=== PATIENT | female | born 1940 | race Caucasian/White ===

== ENCOUNTER 2018-07-28 08:58 | Inpatient (IN) | payer MEDICARE ==
[~2018-07-28] VITALS: Ht 162.6 cm; Wt 55.8 kg
--- NOTE | ~2018-07-28 | CON ---
[address] [address] CONSULTATION Name: OFE BRAY Room: [address] IN M.R.#: [id number] Admission: 07/28/18 Attend Phys: Hannah Celestin MD Discharge: Date of : 38 Report #: [id number] THIS REPORT FOR: //name// CC: ALEYDA physician/PCP Hannah Celestin DATE OF SERVICE: 07/30/2018 CHIEF COMPLAINT: Painful toenail dystrophy with onychomycosis, requiring debridement. PHYSICAL EXAMINATION: Toenails are thick, severely dystrophic and incurvated with onychogryphosis deformity. No drainage, inflammation, granulation or paronychia. The nails are painful. She has palpable dorsalis pedis and posterior tibial pulses are +1/4 bilaterally. She has a tinea pedis with +2 nonpitting edema to her legs. A dry, xerotic skin. Semi-rigid hammertoe deformities and mild hallux valgus, bilateral. IMPRESSION: Onychomycosis and peripheral vascular disease. PLAN: Toenails are manually debrided. I will follow up with her in my office post-discharge for routine foot care. By: 1840 [id number] Will DPM /dean
[2018-07-28 08:59] VITALS: BP 185/79
[2018-07-28] MEDS ORDERED: COMBIVENT INH (09:19)
[2018-07-28] MEDS ORDERED: ZESTRIL30 MG PO (09:20)
[2018-07-28] MEDS ORDERED: LORAZEPAM 1 MG T1 M1 PO (09:20)
[2018-07-28] MEDS ORDERED: ALTOPREV40 M1 PO (09:21)
[2018-07-28] MEDS ORDERED: SYMBICORT160 MCG/4. INH (09:22)
[2018-07-28 09:42] LABS: ABSOLUTE BASOPHILS 0.1 thou/uL (0.0-0.2); ABSOLUTE EOSINOPHILS 0.2 thou/uL (0.0-0.7); ABSOLUTE LYMPHOCYTES 1.7 thou/uL (0.8-5.3); ABSOLUTE MONOCYTES 0.8 thou/uL (0.0-1.2); BASOPHILS 0.6 %; HEMATOCRIT 51.7 % (37.0-47.0); HEMOGLOBIN 17.1 gm/dL (12.0-15.0); LYMPHOCYTES 17.3 %; MCH 29.8 pg (26.0-34.0); MCV 90.2 fL (80.0-100.0); MONOCYTES 8.7 %; NUCLEATED RBCS 0 /100WBC; PLATELET COUNT* 311 thou/uL (150-400); POLYS 71.4 %; RBC 5.74 mil/uL (4.20-5.00); RDW-CV 12.7 % (10.5-14.5); WBC 9.8 thou/uL (4.0-11.0)
[2018-07-28 09:49] LABS: APTT 31.7 Seconds (25.0-31.3); INR 1.1; PROTIME 11.2 Seconds (9.20-11.50)
[2018-07-28 09:56] LABS: ANION GAP 11 mmol/L (7-16); BUN 9 mg/dL (7-18); CALCIUM 9.2 mg/dL (8.5-10.1); CHLORIDE 101 mmol/L (98-107); CO2 23 mmol/L (21-32); CREATININE 0.8 mg/dL (0.6-1.3); GLUCOSE 109 mg/dL (70-99); SODIUM 135 mmol/L (136-145); TROPONIN-I LEVEL <0.06 ng/mL (<0.06)
[2018-07-28 10:09] LABS: ALBUMIN 3.6 g/dL (3.4-5.0); ALKALINE PHOSPHATASE 109 U/L (46-116); SGOT 28 U/L (15-37); SGPT 30 U/L (30-65); TOTAL BILIRUBIN 0.7 mg/dL (<0.1-1.0); TOTAL PROTEIN 7.9 g/dL (6.4-8.2)
--- NOTE | 2018-07-28 14:41 | EKG ---
[place] [address] ELECTROCARDIOGRAM REPORT Name: OFE BRAY Room: [place] [address] ADM IN .R.#: [id number] Admission: 07/28/18 Attend Phys: Hannah Celestin MD Discharge: Date of : 38 Report #: [id number] THIS REPORT FOR: //name// [facility] Test Date: 2018-07-28 Test Time: 09:33:57 Pat Name: OFE BRAY Department: Room: [facility] Gender: F Mobile Ui Developer: : 1940 Requested By: Riley Johnson Order Number: [id number] MD: Jagjit Taylor Measurements Intervals [place] Rate: 99 P: 74 MT: 141 QRS: 58 QRSD: 93 T: 33 QT: 356 QTc: 457 Interpretive Statements Sinus rhythm Probable left atrial enlargement No previous ECG available for comparison Electronically Signed On 07-28-2018 14:41:14 CDT by Jagjit Taylor [email or web address] <ELECTRONICALLY SIGNED> By: Jagjit Taylor MD, [facility] 07/28/18 1441 0933 2 Jagjit Taylor MD, FACC /EPI
[2018-07-28 15:16] VITALS: BP 146/35
[2018-07-28 15:30] VITALS: BP 181/84
--- NOTE | 2018-07-28 15:39 | 2DMMODE ---
[place] [address] 2 D/M-MODE ECHOCARDIOGRAM Name: OFE BRAY Room: [place] [address] ADM IN [facility]#: [id number] Admission: 07/28/18 Attend Phys: Hannah Celestin, Discharge: Date of : 38 Date of Service: 07/28/18 1539 Report #: [id number] THIS REPORT FOR: //name// APPROVED REPORT Study performed: 07/28/2018 13:50:27 EXAM: Comprehensive 2D, Doppler, and color-flow Echocardiogram Patient Location: In-Patient Room #: er Status: routine BSA: 1.63 HR: 87 bpm BP: 163/71 mmHg Rhythm: NSR Other Information Study Quality: Good Indications Syncope 2D Dimensions IVSd: 8.28 (7-11mm) LVOT Diam: 18.25 (18-24mm) LVDd: 35.02 mm PWd: 8.40 (7-11mm) Ascending Ao: 25.49 (22-36mm) LVDs: 17.78 (25-40mm) Aortic Root: 25.49 mm Volumes Left Atrial Volume (Systole) LA ESV Index: 10.10 mL/m2 Aortic Valve AoV Peak Merrill.: 1.31 m/s AO Peak Gr.: 6.88 mmHg LVOT Max P.14 mmHg AO Mean Gr.: 3.84 mmHg LVOT Mean P.82 mmHg LVOT Max V: 1.02 m/s AO V2 VTI: 21.21 cm LVOT Mean V: 0.61 m/s GIACOMO (VTI): 2.40 cm2 LVOT V1 VTI: 19.46 cm Mitral Valve E/A Ratio: 0.72 MV Decel. Time: 227.91 ms MV E Max Merrill.: 0.63 m/[place] [address] 2 D/M-MODE ECHOCARDIOGRAM Name: OFE BRAY Room: [place] [address] ADM IN .R.#: [id number] Admission: 07/28/18 Attend Phys: Hannah Celestin, Discharge: Date of : 38 Date of Service: 07/28/18 1539 Report #: [id number] MV PHT: 66.09 ms MVA (PHT): 3.33 cm2 TDI E/Lateral E': 7.88 E/Medial E': 9.00 Medial E' Merrill.: 0.07 m/s Lateral E' Merrill.: 0.08 m/s Pulmonary Valve PV Peak Merrill.: 1.04 m/s PV Peak Gr.: 4.32 mmHg Tricuspid Valve RAP Estimate: 5.00 mmHg TR Peak Gr.: 23.90 mmHg RVSP: 28.00 mmHg PA Pressure: 28.00 mmHg Left Ventricle The left ventricle is normal size. There is normal LV segmental wall motion. There is normal left ventricular wall thickness. Left ventricular systolic function is normal. The left ventricular ejection fraction is within the normal range. LVEF is 65%. Grade I - abnormal relaxation pattern. Right Ventricle The right ventricle is normal size. The right ventricular systolic function is normal. Atria The left atrium size is normal. The right atrium size is normal. Aortic Valve Mild aortic valve sclerosis. No aortic regurgitation is present. There is no aortic valvular stenosis. Mitral Valve The mitral valve is normal in structure. There is no mitral valve regurgitation noted. No evidence of mitral valve stenosis. Tricuspid Valve The tricuspid valve is normal in structure. Trace tricuspid regurgitation. No pulmonary hypertension. Pulmonic Valve The pulmonary valve is normal in structure. There is no [place]mon[place] [address] 2 D/M-MODE ECHOCARDIOGRAM Name: OFE BRAY Room: [address] IN [facility]#: [id number] Admission: 07/28/18 Attend Phys: Hannah Celestin, Discharge: Date of : 38 Date of Service: 07/28/18 1539 Report #: [id number] Great Vessels The aortic root is normal in size. IVC is normal in size and collapses >50% with inspiration. Pericardium There is no pericardial effusion. <Conclusion> The left ventricle is normal size. There is normal left ventricular wall thickness. Left ventricular systolic function is normal. The left ventricular ejection fraction is within the normal range. LVEF is 65%. Grade I - abnormal relaxation pattern. The right ventricle is normal size. The left atrium size is normal. Mild aortic valve sclerosis. No aortic regurgitation is present. There is no aortic valvular stenosis. The mitral valve is normal in structure. The tricuspid valve is normal in structure. IVC is normal in size and collapses >50% with inspiration. There is no pericardial effusion. There is normal LV segmental wall motion. <ELECTRONICALLY SIGNED> By: Jagjit Taylor MD, FACC 07/28/18 1539 1539 1539 Jagjit Taylor MD, FACC /INF
[2018-07-28] MEDS ORDERED: LISINOPRIL2.5 MG (17:42)
[2018-07-28] MEDS ORDERED: ATIVAN0.5 MG PO (17:42)
[2018-07-28 20:30] VITALS: BP 108/58
[2018-07-29 04:00] VITALS: BP 141/69
[2018-07-29 07:55] VITALS: BP 145/61
[2018-07-29 16:00] VITALS: BP 140/57
[2018-07-29 16:45] LABS: URINE BILIRUBIN NEGATIVE (Negative); URINE BLOOD TRACE (Negative); URINE CLARITY CLEAR; URINE COLOR YELLOW; URINE GLUCOSE-RANDOM NEGATIVE (Negative); URINE KETONES TRACE (Negative); URINE LEUKOCYTES-REFLEX NEGATIVE (Negative); URINE NITRITE-REFLEX NEGATIVE (Negative); URINE PROTEIN NEGATIVE (Negative); URINE SPECIFIC GRAVITY <= 1.005 (1.005-1.030); URINE UROBILINOGEN 0.2 E.U./dl (0.2-1.0)
[2018-07-29 20:00] VITALS: BP 125/63
[2018-07-29 23:16] VITALS: BP 130/40
[2018-07-30 04:00] VITALS: BP 131/59
[2018-07-30 08:15] VITALS: BP 111/56
--- NOTE | 2018-07-30 11:19 | CON ---
[address] [address] CONSULTATION Name: OFE BRAY Room: [address] IN M.R.#: [id number] Admission: 07/28/18 Attend Phys: Hannah Celestin MD Discharge: Date of : 39 Report #: [id number] THIS REPORT FOR: //name// CC: ALEYDA physician/PCP Hannah Celestin DATE OF SERVICE: 07/29/2018 REASON FOR CONSULTATION: Arranged for patient pulmonary followup at patient request. HISTORY OF PRESENT ILLNESS: The patient is a pleasant 77-year-old woman with history of COPD. She smoked from age of 19 to 39. She used to smoke variable amount up to a pack a day. She has been on Symbicort 160 and Combivent. She is complaining of intermittent chest tightness with improvement with inhalers. She is mainly using Combivent, however, she ran out of her inhalers because of cost. She denies any wheezing, cough or mucus production. The patient is currently not in exacerbation. Denies any change in her symptoms. She is using her Combivent as needed. We are consulted to establish care and the patient to follow up with us; however, the patient not in any distress. PAST MEDICAL HISTORY: Admitted with syncope, history of anxiety, history of COPD per history, hypertension. MEDICATIONS: Reviewed include Combivent, Symbicort, lovastatin, lorazepam, and lisinopril. PAST SURGICAL HISTORY: Tonsillectomy. SOCIAL HISTORY: Quit smoking. Smoked from 19 to 39 as above. FAMILY HISTORY: Noncontributory. Sister at the bedside. REVIEW OF SYSTEMS: Syncope as above. Cardiology workup pending. Otherwise, as per history of present illness. PHYSICAL EXAMINATION: GENERAL: The patient is anxious, not in distress. VITAL SIGNS: Temperature is 36.9. Respiratory rate is 96, blood pressure 145/61. HEAD AND NECK: Neck is supple. Oral mucosa is clear. CHEST: Clear to auscultation. CARDIOVASCULAR: Regular rhythm. ABDOMEN: Soft, nontender. EXTREMITIES: No edema. PSYCHIATRIC: [place] [address] CONSULTATION Name: OFE BRAY Room: [address] IN [facility].#: [id number] Admission: 07/28/18 Attend Phys: Hannah Celestin MD Discharge: Date of : 39 Report #: [id number] LABORATORY AND OTHER DATABASE: Her white blood cell count 9.8. Chest x-ray, which I have reviewed, was clear. ASSESSMENT AND PLAN: Chronic obstructive pulmonary disease, currently stable, not in distress, controlled with current inhaler Symbicort and Combivent. Recommend to continue inhalers. I agree with the recommendation to follow up as outpatient. Currently, her chronic obstructive pulmonary disease is stable and well controlled. I do not have more to add. We will sign off. Recommend for patient to follow up with us as outpatient with pulmonary function test. The patient is in agreement. The patient also directed to use her inhalers with a spacer. Recommend as above to arrange for followup. I do not have more to add. Please call with questions. <ELECTRONICALLY SIGNED> By: Srinath Ruelas MD 07/30/18 1119 1359 [id number] Sandra Ruelas MD /nt
[2018-07-30 12:00] VITALS: BP 135/66
[2018-07-30 16:00] VITALS: BP 130/73
[2018-07-31] VITALS: BP 145/77
[2018-07-31 04:00] VITALS: BP 146/76
[2018-07-31 09:00] VITALS: BP 120/66
[2018-07-31] MEDS ORDERED: PULMICORT0.5 MG/2 M INH (09:12)
[2018-07-31] MEDS ORDERED: LEVALBUTER0.63 MG/3 INH (09:12)
[2018-07-31] MEDS ORDERED: LISINOPRIL10 MG PO (09:12)
[2018-07-31 12:30] VITALS: BP 158/74
[2018-07-31 16:00] VITALS: BP 135/62
[2018-08-01 01:00] VITALS: BP 160/70
[2018-08-01 04:00] VITALS: BP 143/79
[2018-08-01 09:00] VITALS: BP 127/69
[2018-08-01 12:00] VITALS: BP 124/57
[2018-08-01 20:00] VITALS: BP 120/66
[2018-08-02 08:30] VITALS: BP 95/47
[2018-08-02 16:00] VITALS: BP 100/63; BP 90/66
[2018-08-02 20:30] VITALS: BP 119/82
[2018-08-03 04:58] LABS: ABSOLUTE BASOPHILS 0.1 thou/uL (0.0-0.2); ABSOLUTE EOSINOPHILS 0.3 thou/uL (0.0-0.7); ABSOLUTE LYMPHOCYTES 1.8 thou/uL (0.8-5.3); ABSOLUTE MONOCYTES 0.8 thou/uL (0.0-1.2); ABSOLUTE NEUTROPHILS 5.1 thou/uL (1.6-8.1); BASOPHILS 0.7 %; EOSINOPHILS 3.9 %; HEMATOCRIT 44.6 % (37.0-47.0); HEMOGLOBIN 14.7 gm/dL (12.0-15.0); LYMPHOCYTES 22.8 %; MCH 29.4 pg (26.0-34.0); MCHC 32.9 g/dL (28.0-37.0); MCV 89.4 fL (80.0-100.0); MONOCYTES 9.7 %; MPV 8.8 fl. (7.2-11.1); NUCLEATED RBCS 0 /100WBC; PLATELET COUNT* 311 thou/uL (150-400); POLYS 62.9 %; RBC 4.99 mil/uL (4.20-5.00); RDW-CV 13.1 % (10.5-14.5); WBC 8.1 thou/uL (4.0-11.0)
[2018-08-03 05:33] LABS: CALCIUM 9.3 mg/dL (8.5-10.1); CREATININE 0.8 mg/dL (0.6-1.3); POTASSIUM 3.7 mmol/L (3.5-5.1)
[2018-08-03 08:00] VITALS: BP 143/93
[2018-08-03 09:31] VITALS: BP 143/93
[2018-08-03] MEDS ORDERED: UNICOMPLEX M TA1 TA1 PO (09:38)
[2018-08-03] MEDS ORDERED: VITAMIN B-1100 M1 PO (09:39)
[2018-08-03] MEDS ORDERED: FOLIC ACID1 MG PO (09:39)
[2018-08-03] MEDS ORDERED: XANAX 0.25 MG0.25 MG PO (09:41)
--- NOTE | 2018-08-04 14:23 | CON ---
[address] [address] CONSULTATION Name: OFE BRAY Room: [address] IN M.R.#: [id number] Admission: 07/28/18 Attend Phys: Hannah Celestin MD Discharge: 08/03/18 Date of : 39 Report #: [id number] THIS REPORT FOR: //name// CC: ALEYDA physician/PCP Hannah Celestin DATE OF SERVICE: 07/29/2018 HISTORY OF PRESENT ILLNESS: A 77-year-old female patient who was evaluated by me for tremor, falls and she appeared to have altered mental status when I saw this patient. She said she fell down. She does not know how she fell down. She has done it before and she does not know whether she passed out or not. She said she was having relapse of COPD. She also indicates that she has a lot of tremor when she takes a particular kind of medications. Review of systems indicate that she has a COPD. I do not know what her baseline is. She has some decreased appetite for some time. She has some weight loss. She was not taking her medication properly. She appeared to have altered mental status on my examination. She has a lot of tremor, which she attributes to the pulmonary medications. She has generalized weakness. She has a history of carcinoma of the breast. She has a history of hypertension. She has a history of tonsillectomy. REVIEW OF SYSTEMS: A 14-point review of system was carried out. She denies any stroke. She denies any visual disturbances, ENT symptoms. She does have respiratory difficulty, GI problems. She denies any new , musculoskeletal, constitutional, dermatological, hematological, psychiatric, throat and allergic symptom associated with present symptomatology. PAST MEDICAL HISTORY: Positive for COPD. FAMILY HISTORY: Negative for any early age stroke. SOCIAL HISTORY: She has a history of smoking. PHYSICAL EXAMINATION: Indicate she is alert. She is responsive. Her memory and fund of knowledge is both poor, but speech looks intact. Cranial nerve examination 2-12 looks unremarkable. She moves all 4 extremities. Her position sense is intact. I could not look at the patient's fundus. Reflexes are symmetrical. She does not have any asymmetry of the patient's tone. There is no meningeal sign. She is moderately built individual who does not have any dysmorphic features of eyes, ears and face. Her vision and hearing looks adequate. She has no thyroid mass. Blood pressure is 145/61, pulse is 96, temperature is 98.5. LABORATORY DATA: Indicate a white count of 9.8. TSH is normal. She did have a CT scan of the head done that does not show [place] [address] CONSULTATION Name: OFE BRAY Room: [address] IN M.R.#: [id number] Admission: 07/28/18 Attend Phys: Hannah Celestin MD Discharge: 08/03/18 Date of : 39 Report #: [id number] patient was very tremulous when I saw this patient. She also appeared to be short of breath, but she said she becomes like this when she used this pulmonary medication. IMPRESSION: This patient has falls. I am not sure what the etiology is, but we will get some workup done. Workup is difficult. At the moment, she is shaking a lot. We will let her calm down and after that will like to do an MRI done in this patient. Thank you very much for this referral. I will follow the patient with you and we will talk to you. <ELECTRONICALLY SIGNED> By: Gianluca Sexton MD 08/04/18 1423 1351 0401Prufino Sexton MD /nt
--- NOTE | 2018-08-04 14:23 | EEG ---
[address] [address] EEG STUDY REPORT Name: OFE BRAY Room: [address] IN M.R.#: [id number] Admission: 07/28/18 Attend Phys: Hannah Celestin MD Discharge: 08/03/18 Date of : 39 Report #: [id number] THIS REPORT FOR: //name// CC: [facility] physician/PCP Hannah Celestin DATE OF SERVICE: 07/28/2018 This patient is being evaluated for altered mental status. EEG was done by placing the electrodes by standard 10-20 system of electrode placement. Both referential and sequential montages were used for recording. Background activity in this patient's EEG is about 9 Hz and 30 microvolt. Photic stimulation was unremarkable. The patient became drowsy and that is associated with bilateral slowing and vertex sharp waves. Throughout the record, no active epileptiform activity was noted. IMPRESSION: This patient's EEG is intermixed with theta range slowing on both sides. That is a nonspecific abnormality, which can occur with encephalopathy, effect of psychotropic medication, dementia, etc. Clinical correlation is recommended. <ELECTRONICALLY SIGNED> By: Gianluca Sexton MD 08/04/18 1423 1751 1907Gianluca Sexton MD /nt
== END 2018-08-03 15:23 | DRG 640 ==
LOC: M.ERS 08:58 → M.3W 12:06 → M.TBA-ER 12:06 → M.3W 16:26
PROVIDERS: Family Medicine; Internal Medicine; ADMIT Internal Medicine
PROC: 0HBRXZZ Excision of Toe Nail, External Approach (ICD-10-PCS; principal; 2018-07-30)
DX: E86.0 Dehydration (principal); G93.41 Metabolic encephalopathy; I16.0 Hypertensive urgency; F03.90 Unspecified dementia, unspecified severity, without behavioral disturbance, psychotic disturbance, mood disturbance, and anxiety; J44.9 Chronic obstructive pulmonary disease, unspecified; F41.9 Anxiety disorder, unspecified; I10 Essential (primary) hypertension; I73.9 Peripheral vascular disease, unspecified; B35.1 Tinea unguium; M20.12 Hallux valgus (acquired), left foot; M20.11 Hallux valgus (acquired), right foot; M20.42 Other hammer toe(s) (acquired), left foot; M20.41 Other hammer toe(s) (acquired), right foot; Z88.2 Allergy status to sulfonamides; Z88.7 Allergy status to serum and vaccine; Z85.3 Personal history of malignant neoplasm of breast; Z87.891 Personal history of nicotine dependence; Z91.19 Patient's noncompliance with other medical treatment and regimen; W18.30XA Fall on same level, unspecified, initial encounter; Y93.89 Activity, other specified; Y92.89 Other specified places as the place of occurrence of the external cause; Y99.8 Other external cause status

== ENCOUNTER 2018-08-16 09:52 | Inpatient (IN) | payer MEDICARE ==
[~2018-08-16] VITALS: Ht 157.5 cm; Wt 52.6 kg
--- NOTE | ~2018-08-16 | CON ---
[address] [address] CONSULTATION Name: OFE BRAY Room: [address] IN M.R.#: [id number] Admission: 08/16/18 Attend Phys: Hannah Celestin MD Discharge: Date of : 38 Report #: [id number] THIS REPORT FOR: //name// CC: [facility] physician/PCP Hannah Celestin HISTORY OF PRESENT ILLNESS: This is a pleasant 77-year-old female whose past medical history is significant for hypertension, anxiety, COPD and asthma, who presented with acute pneumonitis and asthma exacerbation. The patient has been treated for the above since 08/16/2018 when she presented to the ER. The GI service has been consulted for acute impaction of a pill in her esophagus. The patient reports she tried swallowing a pill around 12:00 p.m. and noted that she was not able to swallow since then. She denies any similar episodes in the past. The patient denies any dysphagia to solids and liquids. Denies any other symptoms such as weight loss, hematemesis or hematochezia. Her last EGD was done several years back and the patient is unsure what was diagnosed on that. PAST MEDICAL HISTORY: Anxiety, asthma and COPD. PAST SURGICAL HISTORY: Breast tumor resection in 1998 and 2000. Remote history of tonsillectomy. SOCIAL HISTORY: The patient was a former smoker. Denies alcohol or recreational drug use. FAMILY HISTORY: There is no family history of esophageal or colonic malignancies. REVIEW OF SYSTEMS: Negative, except for what was mentioned in the HPI. PHYSICAL EXAMINATION: VITAL SIGNS: Temperature 36.4, pulse rate 74, blood pressure 131/67 and respiratory rate 18. GENERAL: The patient is alert, awake and oriented x 3. HEENT: Pupils are equal, round and reactive to light and accommodation. Mucous membranes are moist. There is no congestion. LUNGS: Clear to auscultation bilaterally. CARDIOVASCULAR EXAMINATION: Rate and rhythm regular, S1, S2 present. ABDOMEN: Soft. There is no distention, guarding or rigidity. EXTREMITIES: Warm and well perfused. ASSESSMENT AND PLAN: A pleasant 77-year-old female, with past medical history as outlined above, has presented with acute impaction of pill. We will proceed with EGD and make further recommendations based on the results of the EGD. By: 1516 0157Hector Marr MD /nt
[~2018-08-16 09:52] MED LIST: ALTOPREV40 M1 PO; ATIVAN0.5 MG PO; COMBIVENT INH; FOLIC ACID1 MG PO; LEVALBUTER0.63 MG/3 INH; LISINOPRIL10 MG PO; LISINOPRIL2.5 MG; LORAZEPAM 1 MG T1 M1 PO; PULMICORT0.5 MG/2 M INH; SYMBICORT160 MCG/4. INH; UNICOMPLEX M TA1 TA1 PO; VITAMIN B-1100 M1 PO; XANAX 0.25 MG0.25 MG PO; ZESTRIL30 MG PO
[2018-08-16 09:55] VITALS: BP 169/91
[2018-08-16 10:31] LABS: HEMATOCRIT 48.8 % (37.0-47.0); HEMOGLOBIN 16.2 gm/dL (12.0-15.0); MCH 29.5 pg (26.0-34.0); MCHC 33.3 g/dL (28.0-37.0); MCV 88.8 fL (80.0-100.0); MPV 8.2 fl. (7.2-11.1); NUCLEATED RBCS 0 /100WBC; PLATELET COUNT* 470 thou/uL (150-400); RDW-CV 13.3 % (10.5-14.5); WBC 13.9 thou/uL (4.0-11.0)
[2018-08-16 10:38] LABS: INR 1.1; PROTIME 11.3 Seconds (9.20-11.50)
[2018-08-16 10:39] LABS: ANION GAP 15 mmol/L (7-16); BUN 16 mg/dL (7-18); CALCIUM 9.7 mg/dL (8.5-10.1); CHLORIDE 103 mmol/L (98-107); CO2 25 mmol/L (21-32); CREATININE 0.7 mg/dL (0.6-1.3); GLUCOSE 131 mg/dL (70-99); POTASSIUM 3.7 mmol/L (3.5-5.1); SODIUM 143 mmol/L (136-145)
[2018-08-16] MEDS ORDERED: SYMBICORT80 MCG/4.1 INH (10:41)
[2018-08-16 10:49] LABS: ALBUMIN 3.1 g/dL (3.4-5.0); ALKALINE PHOSPHATASE 118 U/L (46-116); LIPASE 75 U/L (73-393); NT-PRO BRAIN NAT PEPTIDE 380 pg/mL (<300); SGOT 30 U/L (15-37); SGPT 33 U/L (30-65); TOTAL BILIRUBIN 0.5 mg/dL (<0.1-1.0); TOTAL PROTEIN 8.3 g/dL (6.4-8.2); TROPONIN-I LEVEL <0.06 ng/mL (<0.06)
[2018-08-16 11:51] LABS: ABSOLUTE LYMPHOCYTES 0.7 thou/uL (0.8-5.3); ABSOLUTE NEUTROPHILS 12.2 thou/uL (1.6-8.1); ATYPICAL LYMPHS 1 %
[2018-08-16 11:52] LABS: BURR CELLS Occasional; GIANT PLATELETS RARE; PLATELET ESTIMATE INCREASED
[2018-08-16] MEDS ORDERED: VITAMIN B-1100 M1 PO (12:10)
[2018-08-16] MEDS ORDERED: XANAX 0.25 MG0.25 MG PO (12:10)
[2018-08-16] MEDS ORDERED: MULTIVITAMINS1 EAC7 PO (12:11)
[2018-08-16] MEDS ORDERED: PULMICORT0.5 MG/22 INH (12:11)
[2018-08-16] MEDS ORDERED: XOPENEX0.63 MG/3 IH (12:13)
[2018-08-16] MEDS ORDERED: FOLIC ACID1 MG PO (12:13)
[2018-08-16 13:04] VITALS: BP 147/87
[2018-08-16 13:31] VITALS: BP 153/130
--- NOTE | 2018-08-16 14:47 | NUR ---
RECIEVIED REPORT FROM SILVIANO RN IN ER AT 1222 OF EXPECTED ADMISSION- DX: PNU/TACHYCARDIAC- PT ARRIVED TO ROOM 215 VIA CART AT 1308- ASSIST X1 TO BED- TOBACCO SWEEPER PLACED ORDERED, TRACING ST- PT A&O X4, FORGETFULL- CONTINENT OF BOWEL AND BLADDER- ASSIST X1 WITH TRANSFERS FOR SAFETY- VS 97.8 22 153/130 115 92% ON 2L VIA NC- COURSE LUNG SOUNDS WITH RHONCHI AND INSPIRATORY AND EXPIRATORY WHEEZES- LABORED BREATHING NOTED WITH WET PRODUCTIVE COUGH- ABD SOFT/FLAT/NON-TENDER, BS X4 QUADS- PT REPORTS LAST BM 08/15/18- IV NOTED TO RIGHT FA INTACT AND SL-SKIN C/D/I AND DRY- BRUSING NOTED TO UE- IV ABT REPORTED TO HAVE BEEN GIVEN IN ER- UPPER AND LOWER DENTURES NOTED- REPORTS TO HAVE READING GLASSES NOT WITH HER AT TIME OF ADMISSION- DENIES ANY C/O PAIN- REFUSES LUNCH, R/T HAVING CRAKERS IN ER AND NOT HUNGARY- CALL LIGHT AND PERSONAL BELONGINGS WITH IN REACH- BED ALARM IN PLACE AND WORKING FOR PT SAFETY- HOURLY ROUNDS IN PLACE R/T SAFETY- ALL NEEDS MET AT THIS TIME-WCTM
[2018-08-16] MEDS ORDERED: LISINOPRIL2.5 MG PO (15:05)
--- NOTE | 2018-08-16 15:28 | EKG ---
[place] [address] ELECTROCARDIOGRAM REPORT Name: OFE BRAY Room: [address] ADM IN .R.#: [id number] Admission: 08/16/18 Attend Phys: Hannah Celestin MD Discharge: Date of : 38 Report #: [id number] THIS REPORT FOR: //name// [facility] ED Test Date: 2018-08-16 Test Time: 10:51:33 Pat Name: OFE BRAY Department: Room: [facility] Gender: F Medical Laboratory Manager: : 1940 Requested By: Conor Cavazos Order Number: [id number] MD: Yovany Huffman Measurements Intervals [place] Rate: 114 P: 86 KS: 132 QRS: 55 QRSD: 89 T: 268 QT: 295 QTc: 407 Interpretive Statements Sinus tachycardia artifact noted Consider right atrial enlargement Nonspecific repol abnormality, diffuse leads Compared to ECG 07/28/2018 09:33:57 Sinus rhythm no longer present Electronically Signed On 08-16-2018 15:28:27 CDT by Yovany Huffman [email or web address] <ELECTRONICALLY SIGNED> By: Yovany Huffman MD, [facility] 08/16/18 1528 1051 1051 Yovany Huffman MD, [facility] /EPI
[2018-08-16 17:11] VITALS: BP 108/62
[2018-08-16 20:00] VITALS: BP 104/56
[2018-08-17] VITALS: BP 98/55
[2018-08-17 04:15] VITALS: BP 117/62
--- NOTE | 2018-08-17 06:44 | NUR ---
PATIENT ALERT, ORIENTED TO SELF AND TIME BUT NOT TO THE PLACE AND SITUATION. REORIENTATION GIVEN. VSS. O2 SATS >92% IN NC 2L. BM THIS SHIFT. SLEPT WELL OVERNIGHT.
[2018-08-17 08:00] VITALS: BP 120/61
--- NOTE | 2018-08-17 10:25 | NUR ---
ASSUMED CARE OF PT AT 0730. PT RESTING IN BED. PT A&0X4, FORGETFUL AND CONFUSED AT TIMES. EASILY REDIRECTABLE. PT TRACING SR ON THE HAND PACKER/PACKAGER. ON 2L NC SAT UPPER 90'S. PT DENIES ANY PAIN OR SHORTNESS OF BREATH AT THIS TIME. PT UP WITH 1 ASSIST TO BSC. PT GOAL FOR TODAY IS TO OBTAIN URINALYSIS, OBTAIN SPECIMEN, BE SEEN BY PT AND OT, CARDIOLOGY CONSULT IN PLACE AND UP TO CHAIR FOR MEALS. AM ASSESSMENT CHARTED. MEDICATIONS PER JUN. PT REPOSITIONS SELF WITH REMINDERS. HOURLY ROUNDING OBSERVED. BED IN LOW POSITION. BED ALARM IN PLACE. FALL PRECAUTIONS IN PLACE. CALL LIGHT WITHIN REACH. WILL CONTINUE PLAN OF CARE.
[2018-08-17 13:35] VITALS: BP 95/77
--- NOTE | 2018-08-17 14:24 | NUR ---
Francia spoke with Pt's sister, Pt is confused at baseline, but sister states that Pt seems "worse" this hospital stay. Pt has been staying at [facility] and plan is to return at dc, FRANCIA confirmed with Varsha at [facility], that they are able to accept Pt at dc. Sister states that normally Pt has been living at home with her, sister assists Pt as needed and is with Pt 24 hours/day, sister also has children that assist as needed. CM informed sister of 's recommendation of Pt being LTC, sister plans for Pt to return home with her post SNF. Following.
--- NOTE | 2018-08-17 15:43 | CON ---
[address] [address] CONSULTATION Name: OFE BRAY Room: [address] IN M.R.#: [id number] Admission: 08/16/18 Attend Phys: Hannah Celestin MD Discharge: Date of : 38 Report #: [id number] THIS REPORT FOR: //name// CC: ALEYDA physician/PCP Hannah Celestin DATE OF SERVICE: 08/16/2018 CARDIOLOGY CONSULTATION HISTORY OF PRESENT ILLNESS: The patient is a 77-year-old single white female who I was asked to see in the hospital today after she is noted to be tachycardic. The history is obtained from the patient as well as some old records. The patient was admitted here last month to [facility] after she had fallen. She at that time was living with a daughter. She apparently was confused. She has a history of COPD. She was seen in consultation by the Neurology Service. She was eventually discharged 3 weeks ago. She is felt to have hypertension, mild dementia. She was discharged to long-term. The patient was brought to the Emergency Room earlier today with increasing shortness of breath and a cough. She is not very active at this time. She is on oxygen at the long-term facility. She denied a history of myocardial infarction, chest pain, palpitation, syncope, edema. PAST MEDICAL HISTORY: She has had previous bilateral breast surgery for cancer. She has no history of hypertension and diabetes. MEDICATIONS: At the long-term unit consists of Pulmicort, lisinopril, Xanax. ALLERGIES: SHE HAS AN ALLERGY TO SULFA DRUGS. FAMILY HISTORY: Negative for heart disease. SOCIAL HISTORY: She is . She used to work in [email or web address], lives in [place]. No smoking or alcohol abuse. REVIEW OF SYSTEMS: She has had no history of stroke. She has COPD. No history of peptic ulcer disease, liver disease, kidney disease, chronic skin condition or psychiatric illness. PHYSICAL EXAMINATION: GENERAL: Revealed a frail elderly appearing female who is lying in bed. She appeared in no distress. VITAL SIGNS: Showed a blood pressure of 150/90, pulse is 100, she is afebrile. HEENT: She was anicteric, conjunctivae pink. Mucous membranes are moist. NECK: Veins do not appear distended[place] [address] CONSULTATION Name: ASAOFE Ye Room: [address] IN [facility]#: [id number] Admission: 08/16/18 Attend Phys: Hannah Celestin MD Discharge: Date of : 38 Report #: [id number] CHEST: Revealed distant breath sounds. CARDIAC: Regular tachycardia. No significant murmur. ABDOMEN: Soft. EXTREMITIES: Had no edema. Dorsalis pedis pulse 1+ bilaterally. SKIN: Cool and dry. NEUROLOGIC: Nonfocal. LYMPHATIC: No adenopathy. MUSCULOSKELETAL: No joint effusion. LABORATORY DATA: ECG: She appears to be in sinus tachycardia. A 12-lead ECG was obtained. She had portable chest x-ray obtained this morning that showed atelectasis, hyperinflated lung price. CT scan of the chest using a PE protocol showed no pulmonary embolus, pulmonary infiltrate noted, some lymphadenopathy. Carotid Doppler study done last month showed lywh-tk-cglvogbz plaque. Previous CT scan of the head with contrast after her fall last month showed atrophy. Echocardiogram done last month showed an ejection fraction of 60%, aortic sclerosis. Her lab work are sodium 143, creatinine 0.7, albumin 3.1. Troponin 0.06. BNP 380, TSH 1.3. White blood cell count 13.9, hemoglobin 16.2. IMPRESSION AND RECOMMENDATION: 1. Sinus tachycardia. Reason unclear. Possible pneumonia. Possibly related to beta agonist. Recommend no cardiac evaluation at this time. 2. Hypertension. The patient has been on BREANNA inhibitor. 3. Chronic obstructive pulmonary disease. 4. Previous tobacco abuse. 5. History of breast cancer. <ELECTRONICALLY SIGNED> By: Yovany Huffman MD, [facility] 08/17/18 1543 1411 0419Dahope Huffman MD, FACC /nt
--- NOTE | 2018-08-17 17:02 | EKG ---
[place] [address] ELECTROCARDIOGRAM REPORT Name: OFE BRAY Room: [address] ADM IN M.R.#: [id number] Admission: 08/16/18 Attend Phys: Hannah Celestin MD Discharge: Date of : 38 Report #: [id number] THIS REPORT FOR: //name// [facility] Test Date: 2018-08-17 Test Time: 07:54:08 Pat Name: OFE BRAY Department: Room: [address] Gender: F Ops Manager: : 1940 Requested By: Yovany Huffman Order Number: [id number] Bharti MD: Paul Begum Measurements Intervals Ernul Rate: 85 P: 75 MS: 128 QRS: 59 QRSD: 91 T: 9 QT: 360 QTc: 428 Interpretive Statements Sinus rhythm Atrial premature complexes Nonspecific T abnormalities, inferior leads Compared to ECG 08/16/2018 10:51:33 Atrial premature complex(es) now present T-wave abnormality now present Sinus tachycardia no longer present Early repolarization no longer present Electronically Signed On 08-17-2018 17:02:37 CDT by Paul Begum [email or web address] <ELECTRONICALLY SIGNED> By: Paul Begum MD, FAC 08/17/18 1702 [id number] Paul Begum MD, [facility] /EPI
[2018-08-17 17:14] VITALS: BP 103/61
--- NOTE | 2018-08-17 18:34 | NUR ---
NO ACUTE CHANGES THROUGHOUT SHIFT. REFER TO CHARTING. PT SLOWLY PROGRESSING TOWARDS. PT UP TO CHAIR FOR MEALS. DENIES ANY SHORTNESS OF BREATH OR PAIN THROUGHOUT AFTERNOON. CONTINUES TO TRACE SR/ST ON THE CAREER DEVELOPMENT ASSOCIATE. PT UP WITH 1 ASSIST TO BSC. CARDIOLOGY SEEN PT AND SIGNED OFF. MEDICATIONS PER JUN. PT REPOSITIONS SELF. HOURLY ROUNDING OBSERVED. BED IN LOW POSITION. CALL LIGHT WITHIN REACH. WILL CONTINUE PLAN OF CARE.
[2018-08-17 20:00] VITALS: BP 95/73
[2018-08-18 00:07] VITALS: BP 103/81
[2018-08-18 04:26] VITALS: BP 130/66
[2018-08-18 05:49] LABS: ABSOLUTE LYMPHOCYTES 1.2 thou/uL (0.8-5.3); ABSOLUTE MONOCYTES 0.4 thou/uL (0.0-1.2); BASOPHILS 0.1 %; HEMATOCRIT 43.6 % (37.0-47.0); LYMPHOCYTES 8.3 %; MCH 28.7 pg (26.0-34.0); MCHC 32.6 g/dL (28.0-37.0); MCV 88.2 fL (80.0-100.0); MONOCYTES 2.6 %; MPV 8.5 fl. (7.2-11.1); NUCLEATED RBCS 0 /100WBC; PLATELET COUNT* 441 thou/uL (150-400); RBC 4.95 mil/uL (4.20-5.00); RDW-CV 13.3 % (10.5-14.5); WBC 14.7 thou/uL (4.0-11.0)
[2018-08-18 05:56] LABS: HEMOGLOBIN 14.2 gm/dL (12.0-15.0)
[2018-08-18 06:50] LABS: URINE BILIRUBIN NEGATIVE (Negative); URINE BLOOD NEGATIVE (Negative); URINE CLARITY CLEAR; URINE COLOR YELLOW; URINE GLUCOSE-RANDOM NEGATIVE (Negative); URINE KETONES TRACE (Negative); URINE LEUKOCYTES NEGATIVE (Negative); URINE NITRITE NEGATIVE (Negative); URINE PROTEIN TRACE (Negative); URINE UROBILINOGEN 0.2 E.U./dl (0.2-1.0)
[2018-08-18 08:00] VITALS: BP 120/66
[2018-08-18 12:00] VITALS: BP 99/61
--- NOTE | 2018-08-18 13:51 | NUR ---
ASSUMED CARE OF PT AT 0730. PT RESTING IN BED. PT A&0X4, FORGETFUL AND PLEASANTLY CONFUSED AT TIMES. PT DENIES ANY PAIN OR SHORTNESS OF BREATH AT THIS TIME. PT TRACING SR/ST WITH PACS ON THE CLERICAL AIDE TEACHER. PT UP WITH 1 ASSIST BSC. PT ON 2L NC SAT UPPER 90'S. PT GOAL FOR TODAY IS REPEAT CXR, TITRATE OXYGEN, INCREASE ACTIVITY AND PULMONARY CONSULT. AM ASSESSMENT CHARTED. MEDICATIONS PER JUN. PT REPOSITIONS SELF. HOURLY ROUNDING OBSERVED. BED IN LOW POSITION. BED ALARM IN PLACE. FALL PRECAUTIONS IN PLACE. CALL LIGHT WITHIN REACH. WILL CONTINUE PLAN OF CARE.
[2018-08-18 16:00] VITALS: BP 90/64
--- NOTE | 2018-08-18 18:56 | NUR ---
NO ACUTE CHANGES THROUGHOUT SHIFT. REFER TO CHARTING. PT CONTINUES TO BE PLEASANTLY CONFUSED. PT INCONT OF BM THIS SHIFT. PT HAD CXR TODAY-REFER TO RESULTS. PT CONTINUES TO TRACE SR/ST WITH PACS ON THE FACULTY CR[employer]. ON 2L NC SAT UPPER 90'S. PT DENIES ANY SHORTNESS OF BREATH OR PAIN THIS AFTERNOON. PT UP WITH 1 ASSIST TO BSC. MEDICATIONS PER JUN. PT REPOSITIONS SELF. HOURLY ROUNDING OBSERVED. BED IN LOW POSITION. BED ALARM IN PLACE. FALL PRECAUTIONS IN PLACE. CALL LIGHT WITHIN REACH. WILL CONTINUE PLAN OF CARE.
[2018-08-18 19:15] VITALS: BP 139/68
[2018-08-19] VITALS: BP 103/71
--- NOTE | 2018-08-19 03:49 | NUR ---
ASSUMED CARE OF PT AT 1900. PT IS CONFUSED TO SITUATIONS. VSS. PERRLA. NO COMPLAINTS OF PAIN. PT IS IN SINUS RYTHM ON THE TELEMETRY. PT IS RESTING COMFORTABLY IN BED. RESPIRATIONS ARE EVEN AND NONLABORED. WILL CONTINUE TO MONITOR PT.
[2018-08-19 04:00] VITALS: BP 111/61
[2018-08-19 07:39] VITALS: BP 118/62
--- NOTE | 2018-08-19 09:13 | NUR ---
ASSUMED CARE OF PT AT 0730. PT RESTING AT EDGE OF BED WAITING FOR BREAKFAST. PT A&0X4, FORGETFUL AND PLEASANTLY CONFUSED AT TIMES. PT TRACING SR/ST WITH PAC'S ON THE PINION SORTER. ON 2L NC SAT UPPER 90'S. PT DENIES ANY PAIN OR SHORTNESS OF BREATH AT THIS TIME. PT UP WITH 1 ASSIST TO BSC. PT GOAL FOR TODAY IS PULMONARY CONSULT, IV ANTIBIOTICS AND STEROIDS AND INCREASE ACTIVITY. AM ASSESSMENT CHARTED. MEDICATIONS PER JUN. PT REPOSITIONS SELF. HOURLY ROUNDING OBSERVED. BED IN LOW POSITION. CALL LIGHT WITHIN REACH. WILL CONTINUE PLAN OF CARE.
[2018-08-19 15:29] VITALS: BP 118/66
--- NOTE | 2018-08-19 17:14 | NUR ---
NO ACUTE CHANGES THROUGHOUT SHIFT. REFER TO CHARTING. PT MADE MED SURG STATUS. CONTINUES TO BE FORGETFUL AND PLEASANTLY CONFUSED. PT UP TO CHAIR FOR MEALS. NOT PROGRESSING TOWARDS GOALS. PULMONARY CONSULT IN PLACE- PT REFUSING BREATHING TREATMENTS. EDUCATION GIVEN. CONTINUES TO BE ON 2L NC SAT UPPER 90'S. PT DENIES ANY SHORTNESS OF BREATH OR PAIN THIS AFTERNOON. PT UP WITH 1 ASSIST TO BSC. MEDICATIONS PER JUN. PT REPOSITIONS SELF. HOURLY ROUNDING OBSERVED. BED IN LOW POSITION. CALL LIGHT WITHIN REACH. WILL CONTINUE PLAN OF CARE.
[2018-08-19 19:50] VITALS: BP 149/52
[2018-08-20 00:18] VITALS: BP 114/53
--- NOTE | 2018-08-20 02:20 | NUR ---
ASSUMED CARE OF PT AT 1900. PT IS CONFUSED TO SITUATION. VSS. PERRLA. NO COMPLAINTS OF PAIN. PT IS IN SINUS RYTHM ON THE TELEMETRY. PT IS RESTING COMFORTABLY IN BED. RESPIRATIONS ARE EVEN AND NONLABORED. WILL CONTINUE TO MONITOR PT.
[2018-08-20 08:22] VITALS: BP 132/51
--- NOTE | 2018-08-20 08:26 | NUR ---
REPORT CALLED [facility] RN AND PT TRANSFERED TO [facility].
[2018-08-20 09:30] VITALS: BP 124/64
--- NOTE | 2018-08-20 12:02 | CON ---
[address] [address] CONSULTATION Name: OFE BRAY Room: [address] IN M.R.#: [id number] Admission: 08/16/18 Attend Phys: Hannah Celestin MD Discharge: Date of : 38 Report #: [id number] THIS REPORT FOR: //name// CC: ALEYDA physician/PCP Hannah Celestin DATE OF SERVICE: 08/19/2018 REQUESTING PHYSICIAN: Dr. Hannah Celestin. REASON FOR CONSULTATION: Asthma/COPD exacerbation. The patient declines nebulizer treatments. DISCUSSION: The patient is a very pleasant, but somewhat confused 77-year-old woman. She has a past history of tobacco abuse, so it is difficult to ascertain exactly how long ago she quit smoking. Does have some obvious cognitive impairments. She was admitted from a nursing facility here several days ago. She was having more trouble with shortness of breath. Cough was nonproductive. She was seen in the Emergency Department, was noted to be bronchospastic at that time. It was thought she may have some pneumonia. She did have a CT scan done of her chest, which was negative for pulmonary emboli. Areas of dense consolidation were noted. Did have some "tree-in-bud" changes seen in the right lung. Some pleural nodularities were noted. Nebulizer treatments were ordered; however, she has refused to take them. Dr. Celestin did start some montelukast. She has been on oxygen. Given her refusal to take the nebulizer treatments, we are asked to see her to see if there are other options for her. My partner did see her when she was hospitalized here last month. At that time, she was to get established with a wire winder and have some outpatient followup; however, she did go to skilled from here. It is not clear if she will be able to return home again. I reviewed those notes. I also talked with the patient. She is an extremely poor historian. She apparently has had Symbicort as well as Combivent at home; however, she tells me she has not used them in "years." They are quite expensive; however, when she did need them, they worked quite well for her. She is not happy with the nebulizer treatments given her here. She will have marked tremors that seem to march up one arm and then the other. It "scares me to ." I attempted to discuss the various types of medication use. Again, she is emphatic that she will not take any. She has been tolerating the intravenous steroids and the montelukast fair. She has never had any PFTs. She is a former smoker. Again, she cannot tell me how long ago she quit. Also, when asked about her employment history, can tell me only that she "worked very hard." She cannot be specific as to what [place] [address] CONSULTATION Name: OFE BRAY Room: [address] IN M.R.#: [id number] Admission: 08/16/18 Attend Phys: Hannah Celestin MD Discharge: Date of : 38 Report #: [id number] PAST MEDICAL HISTORY: Besides the asthma/COPD, though severity is unknown, history remarkable also for tonsillectomy done as a child. Did have some tumors removed from her breast quite a few years ago. These were apparently benign or precancerous. Hypertension. She did have full pulmonary function studies done here back in the year 2001, but all those reports have been purged from the electronic record. She denies any history of cardiac disease as well as thromboembolic disease. Denies having any episodes of pneumonia previously. SOCIAL HISTORY: History of smoking, though again, it is not clear when she quit. Per notes, she was living with her sister prior to her first hospitalization here last month. They went to skilled. According to notes, it appears she does have a daughter who is involved with her care. FAMILY HISTORY: Really unable to obtain from the patient. Old notes do not indicate, they were also unable to obtain any information from her. REVIEW OF SYSTEMS: Question reliability. At this time, she is also worried about dentures that she may have lost in the room. She does deny difficulty swallowing. She tells me her appetite has been good. She does deny chest pain. She notes only that her "breathing is fine" at this time. She denies wheezing. Denies vomiting or diarrhea. Denies any falls. PHYSICAL EXAMINATION: GENERAL APPEARANCE: A chronically ill-appearing woman. Does look older than stated age. Does look quite thin. HEENT: Head is normocephalic. Sclerae nonicteric. Does have some crowding of her cornea. Mucous membranes are all dry. No thrush is seen. NECK: Negative for adenopathy. No JVD is noted. Neck muscles quite well developed. HEART: Regular. No S3 is heard. She does have a grade 1/6 systolic murmur. LUNGS: Reveal breath sounds to be diminished with a prolonged expiratory phase. Excursion is equal. Has an intermittent congested sounding cough. She is quite thin. Ribs are prominent. ABDOMEN: Soft. Denies any tenderness to palpation. She does not appear to have any hepatosplenomegaly. She has some mild arthritic changes of her hands. Radial pulses are present. No clubbing. EXTREMITIES: Lower extremities, no edema is noted. SKIN: Turgor is fair. It does appear that she probably has some muscle wasting noted. NEUROLOGIC: She is alert and oriented to herself. Overall, hygiene does appear suboptimal. LABORATORY AND X-RAY FINDINGS: No blood gases have been done. On her chemistry, her BUN was 16, creatinine 0.7, potassium is 3.7. Glucose 131. Transaminases were normal. Alkaline phosphatase mildly elevated at 118, total [facility] [address] [place] [address] CONSULTATION Name: OFE BRAY Room: [address] IN [facility].#: [id number] Admission: 08/16/18 Attend Phys: Hannah Celestin MD Discharge: Date of : 38 Report #: [id number] protein 8.3 with an albumin of 3.1. Calcium 9.7. ProBNP 380. White blood cell count 14,700, hemoglobin 14.2, hematocrit 43.6, platelets 441,000. MRSA screen is pending. UA revealed trace protein and ketones, was otherwise unremarkable. Blood cultures are pending. Imaging studies were reviewed, regular chest x-ray last month as well as this admission. A CT angiogram was done on admission to the ED. She did have some respiratory artifact. With the limitations, no definite infiltrates were seen. Did have some nodular densities noted, pleural based on the right side. Some "tree-in-bud" infiltrates also noted. Peribronchial thickening bilaterally. She had some mild mediastinal and hilar adenopathy noted. Echocardiogram done last month revealed preserved LV function. EF was 65%. Did have grade 1 diastolic dysfunction. RV was normal. Did not appear to have any pulmonary hypertension. IMPRESSION: 1. Asthma/chronic obstructive pulmonary disease. It is difficult to know how much it is true asthma versus chronic obstructive pulmonary disease or overlap syndrome. I suspect it may be more chronic obstructive pulmonary disease, was bronchospastic this admission, is improved at the time of admission. Treatment of it is hampered by her refusing to take any nebulizer treatments. Did discuss with her the different medications, which are offered to try change to one that would not cause the tremors and shakiness, but she adamantly declines. Do agree with the montelukast, which has been started. 2. We will also start some Mucinex in liquid form that may help her mobilize her secretions better. 3. Wean O2. Hopefully, will not need oxygen when discharged. 4. We will need a followup CT scan in 3-4 months. 5. Consider spirometry and/or full PFTs in the future; however, I suspect she will probably need to be in long-term care. 6. We will also need to define the goals. Given her cognitive deficits and issues, consideration of code status probably would be appropriate. <ELECTRONICALLY SIGNED> By: Ewelina Alvarado MD 08/20/18 1202 [id number] [id number] Alvarado MD /nt
[2018-08-20 16:17] VITALS: BP 160/44
--- NOTE | 2018-08-20 16:44 | NUR ---
PT REMAINED ALERT BUT CONFUSED AND FORGETFUL. PT HAS BEEN INCONTINENT OF LOOSE STOOL, DOCTOR NOTIFIED. PT STATES THIS IS NOT NORMAL. PT WORRIED. PT BELIEVE IT IS DUE TO THEIR FAVORITE FOODS, HAVE BEEN UNSUCCESSFUL IN EXPLAINING SITUATION. FALL RISK PRECAUTIONS IN PLACE. HOURLY ROUNDING COMPLETED. WILL CONTINUE TO MONITOR.
[2018-08-20 20:00] VITALS: BP 132/62
[2018-08-21] VITALS: BP 123/68
[2018-08-21 04:00] VITALS: BP 133/69
--- NOTE | 2018-08-21 06:32 | NUR ---
vitals stable, afebrile. patient oriented to place, self and situation. confused at times. she kept asking this rn if i have slept yet, and muted her tv for me so i can take a nap. slept some, reports she normally doesn't get much sleep through the night. bm x1 this shift, small, black stool. able to turn self in bed. call light within reach.
[2018-08-21 07:45] VITALS: BP 146/66
[2018-08-21 16:00] VITALS: BP 141/61
--- NOTE | 2018-08-21 17:24 | NUR ---
PT REMAINED ALERT TO SELF AND IS CONFUSED. PT HAS BEEN INCONTINENT OF LOOSE STOOL AND URINE. ABX GIVEN ORDERED. PT RESTING IN ROOM. FALL RISK PRECAUTIONS IN PLACE. HOURLY ROUNDING COMPLETED. WILL CONTINUE TO MONITOR.
[2018-08-21 22:20] VITALS: BP 129/61
[2018-08-22 04:16] LABS: HEMATOCRIT 40.6 % (37.0-47.0); HEMOGLOBIN 13.4 gm/dL (12.0-15.0); MCHC 33.1 g/dL (28.0-37.0); MCV 87.6 fL (80.0-100.0); MPV 8.1 fl. (7.2-11.1); RBC 4.63 mil/uL (4.20-5.00); RDW-CV 13.1 % (10.5-14.5)
[2018-08-22 04:23] LABS: CREATININE 0.7 mg/dL (0.6-1.3)
[2018-08-22 04:28] LABS: POTASSIUM 2.7 mmol/L (3.5-5.1)
--- NOTE | 2018-08-22 05:50 | NUR ---
PT ORIENTED TO PERSON, PLACE. VITALS, SpO2 STABLE. PT IS ON 1.5L OF OXYGEN BY NC. PO MEDS,IV ANTIBIOTIC GIVEN ORDERED. ELECTROLYTE REPLACEMENT IS IN PROGRESS. INCONTINENT AT TIMES, UP TO BEDSIDE COMMODE WITH ASSISTANCE. HOURLY ROUNDING, Q2 TURN COMPLETED. WILL CONTINUE TO MONITOR.
[2018-08-22 07:25] VITALS: BP 127/58
[2018-08-22 16:00] VITALS: BP 118/69
--- NOTE | 2018-08-22 17:12 | NUR ---
PT REMAINED ALERT AND ORIENTED TO SELF AND SITUATION. PT IS CONFUSED. PT RESTING IN ROOM. PT WAS CONTINENT MOST OF SHIFT. RAN OUT OF LIQUID MUCINEX, PHARMACY CHANGED IT TO TABLET. FALL RISK PRECAUTIONS IN PLACE. HOURLY ROUNDING COMPLETED. WILL CONTINUE TO MONITOR.
[2018-08-22 20:00] VITALS: BP 131/73
--- NOTE | 2018-08-23 05:28 | NUR ---
ASSUMED CARE OF PT AT 1900 PT ALERT AND ORIENTED X2 PT PLEASENTLY CONFUSED VS AND ASSESSMENT STABLE. PT REFUSED TURNS UNTIL 0200. PT VOICED NO CONCERNS AND SLEPT THROUGH THE NIGHT. WILL CONTINUE PLAN OF CARE.
[2018-08-23 07:05] VITALS: BP 131/67
[2018-08-23 08:35] LABS: HEMATOCRIT 46.5 % (37.0-47.0); HEMOGLOBIN 15.2 gm/dL (12.0-15.0); MCH 28.7 pg (26.0-34.0); MCHC 32.7 g/dL (28.0-37.0); MPV 8.5 fl. (7.2-11.1); RBC 5.28 mil/uL (4.20-5.00); RDW-CV 13.4 % (10.5-14.5)
[2018-08-23 08:46] LABS: CALCIUM 8.8 mg/dL (8.5-10.1); CREATININE 0.8 mg/dL (0.6-1.3)
[2018-08-23 08:55] LABS: POTASSIUM 3.8 mmol/L (3.5-5.1)
--- NOTE | 2018-08-23 11:00 | NUR ---
NOTIFIED [facility] THAT PT.MIGHT BE READY FOR DISCHARGE TOMORROW. SHE SAID SHE HAS 20 OF HER SKILLED DAYS LEFT. THEY WILL TRY TO SKILL HER FOR A WEEK OR SO.
[2018-08-23 12:52] VITALS: BP 131/67
--- NOTE | 2018-08-23 13:42 | NUR ---
Nutrition: RD saw pt for LOS. Admitted with PNA. Pt stated her breathing is so much better and she feels good now. Wt: 116#. Full liquid diet, tray on side untouched. Pt stated that nursing didn't want her eating anything yet until they knew if she could. Pt is hungry. Loose BM yday. Pt likes vanilla ice cream. May order as much as she wants. Albumin 3.1. No nutrition concerns at this time. Hopeful for diet advancement and good po intake/tolerance. Will follow up 08/28/18.
--- NOTE | 2018-08-23 17:06 | NUR ---
PT REMAINED ALERT TO SELF AND SITUATION. PT MADE NPO FOR PILL STUCK IN THROAT. EGD TODAY WITH DILATION. PT NOW REGULAR DIET BUT PREFERS FULL LIQUID DIET. HAVING SOME DISCOMOFORT IN THROAT AFTER PROCEDURE. PT RESTING IN ROOM. FALL RISK PRECAUTIONS IN PLACE. HOURLY ROUNDING COMPLETED. WILL CONTINUE TO MONITOR
[2018-08-23 17:34] VITALS: BP 158/67
[2018-08-24 07:20] VITALS: BP 124/61
--- NOTE | 2018-08-24 07:33 | NUR ---
PATIENT HAS SLEPT WELL THROUGHOUT THE NIGHT. VSS ON RA. NO C/O PAIN. MEDICATIONS GIVEN ORDERED AND CHARTED. PATIENT UP WITH ASSIST X 1 TO THE BSC BUT HAS BEEN INCONTINENT OF BLADDER. IV IN LEFT AC-SL. IV ABT GIVEN WITHOUT ANY ADVERSE SIDE EFFECTS NOTED. PATIENT INSTRUCTED TO USE CALL LIGHT WHEN NEEDING ASSISTANCE. HOURLY ROUNDS MADE. WILL CONTINUE WITH PLAN OF CARE AND NURSING TO MONITOR.
--- NOTE | 2018-08-24 14:56 | NUR ---
SPOKE WITH [facility] TO INFORM NO DISCHARGE TODAY BUT MOST LIKELY TOMORROW. CALLED PTS SISTER TO INFORM.
[2018-08-24 15:27] VITALS: BP 107/68
--- NOTE | 2018-08-24 17:11 | NUR ---
PT REMAINED ALERT. PT HAD MOMENTS OF INCONTINENCE. PT REFUSED BATH BUT HAD SHOWER CAP TO WASH HAIR. PT SWALLOWED MEDS WHOLE IF SMALL, CRUSHED WITH APPLESAUCE OR PUDDING IF LARGER. FALL RISK PRECAUTIONS IN PLACE. HOURLY ROUNDING COMPLETED. WILL CONTINUE TO MONITOR.
[2018-08-24 20:30] VITALS: BP 117/69
--- NOTE | 2018-08-25 04:41 | NUR ---
PATIENT HAS SLEPT WELL THROUGHOUT THE NIGHT. VSS ON RA. NO C/O PAIN. IV IN LEFT AC-SL. PATIENT INSTRUCTED TO USE CALL LIGHT WHEN NEEDING ASSISTANCE. HOURLY ROUNDS MADE AND PATIENT TURNED EVERY 2HRS AND PRN. WILL CONTINUE WITH PLAN OF CARE AND NURSING TO MONITOR.
[2018-08-25 05:21] LABS: HEMATOCRIT 44.6 % (37.0-47.0); HEMOGLOBIN 14.5 gm/dL (12.0-15.0); MCH 28.9 pg (26.0-34.0); MCHC 32.5 g/dL (28.0-37.0); MCV 88.8 fL (80.0-100.0); MPV 8.8 fl. (7.2-11.1); RBC 5.02 mil/uL (4.20-5.00); RDW-CV 13.2 % (10.5-14.5); WBC 13.2 thou/uL (4.0-11.0)
[2018-08-25 05:39] LABS: CALCIUM 9.1 mg/dL (8.5-10.1); CREATININE 0.8 mg/dL (0.6-1.3); POTASSIUM 3.6 mmol/L (3.5-5.1)
[2018-08-25 06:07] LABS: BE 4.9 mmol/L (-2 to +3); PCO2 35.7 mmHg (35.0-45.0); pH 7.509 (7.340-7.450)
[2018-08-25 06:10] LABS: PO2 53.8 mmHg (75.0-100.0)
[2018-08-25 07:15] VITALS: BP 129/66
--- NOTE | 2018-08-25 10:54 | EKG ---
[place] [address] ELECTROCARDIOGRAM REPORT Name: OFE BRAY Room: [address] ADM IN M.R.#: [id number] Admission: 08/16/18 Attend Phys: Hannah Celestin MD Discharge: Date of : 38 Report #: [id number] THIS REPORT FOR: //name// [facility] Test Date: 2018-08-25 Test Time: 08:32:15 Pat Name: OFE BRAY Department: Room: [address] Gender: F Attenuator: : 1940 Requested By: Yovany Huffman Order Number: [id number] Bharti MD: Yovany Huffman Measurements Intervals [place] Rate: 84 P: 72 MS: 129 QRS: 50 QRSD: 93 T: 256 QT: 400 QTc: 473 Interpretive Statements Sinus rhythm Atrial premature complexes Nonspecific T abnormalities, lateral leads Baseline wander in lead(s) V1 Compared to ECG 08/17/2018 07:54:08 No significant changes Electronically Signed On 08-25-2018 10:54:50 CDT by Yovany Huffman [email or web address] <ELECTRONICALLY SIGNED> By: Yovany Huffman MD, [facility] 08/25/18 1054 0832 0832 Yovany Huffman MD, [facility] /EPI
[2018-08-25] MEDS ORDERED: ALBUTEROL S2 MG/5 ML PO (12:36)
[2018-08-25] MEDS ORDERED: AUGMENTIN 875-1 EACH PO (12:36)
[2018-08-25] MEDS ORDERED: SINGULAIR 10 MG10 M1 PO (12:37)
[2018-08-25] MEDS ORDERED: BUSPIRONE HCL5 MG PO (12:37)
[2018-08-25] MEDS ORDERED: MUCINEX600 MG PO (12:38)
[2018-08-25] MEDS ORDERED: PREDNISONE 10 M10 MG PO (12:39)
[2018-08-25 13:22] VITALS: BP 129/66
--- NOTE | 2018-08-25 14:52 | NUR ---
ORDERS RECEIVED FOR DC BACK TO [facility]. ORDERS FAXED TO [facility]. SET UP [facility] FOR 430-5PM. CHART COPIED. RN HAS NUMBER TO CALL REPORT. PT/FAMILY NOTIFIED
--- NOTE | 2018-08-25 17:39 | NUR ---
PT CHART COPIED. REPORT CALLED. IV REMOVED. PT LEFT VIA WHEELCHAIR WITH TRANSPORTER TO SKILLED FACILITY. FALL RISK PRECAUTIONS IN PLACE. HOURLY ROUNDING COMPLETED.
[2018-08-25 17:40] VITALS: BP 129/66
== END 2018-08-25 17:41 | DRG 871 ==
LOC: M.ERS 09:52 → M.TBA-ER 11:20 → M.2W 11:20 → M.ORTHSURG 08-20 08:36
PROVIDERS: Emergency Medicine; Internal Medicine Cardiovascular Disease; ADMIT Internal Medicine
PROC: 0D758ZZ Dilation of Esophagus, Via Natural or Artificial Opening Endoscopic (ICD-10-PCS; principal; 2018-08-23)
DX: A41.9 Sepsis, unspecified organism (principal); J96.01 Acute respiratory failure with hypoxia; J15.9 Unspecified bacterial pneumonia; J44.0 Chronic obstructive pulmonary disease with (acute) lower respiratory infection; J45.901 Unspecified asthma with (acute) exacerbation; J44.1 Chronic obstructive pulmonary disease with (acute) exacerbation; I10 Essential (primary) hypertension; I49.1 Atrial premature depolarization; K22.2 Esophageal obstruction; F41.9 Anxiety disorder, unspecified; F03.90 Unspecified dementia, unspecified severity, without behavioral disturbance, psychotic disturbance, mood disturbance, and anxiety; Z87.891 Personal history of nicotine dependence; Z85.3 Personal history of malignant neoplasm of breast; Z79.899 Other long term (current) drug therapy; Z88.2 Allergy status to sulfonamides; Z88.7 Allergy status to serum and vaccine